=== PATIENT | male | born 1990 | race Asian ===

== ENCOUNTER 2016-12-28 15:51 | Emergency (ER) | payer OTHER ==
--- NOTE | 2016-12-28 16:04 | EDPHY ---
H & P Stated Complaint: rlq abd pain since yesterday Source: Patient Exam Limitations: No limitations - Personal History Current Tetanus/Diphtheria Vaccine: Yes - Medical/Surgical History Hx Asthma: No Hx Chronic Respiratory Disease: No Hx Diabetes: No Hx Cardiac Disease: No Hx Renal Disease: No Hx Cirrhosis: No Hx Alcoholism: No Hx HIV/AIDS: No Hx Splenectomy or Spleen Trauma: No Other PMH: denies - Social History Smoking Status: Never smoked Time Seen by Provider: 12/28/16 16:01 HPI/ROS: CHIEF COMPLAINT: Abdominal pain HISTORY OF PRESENT ILLNESS: 26-year-old male presents emergency department complaining of right lower quadrant abdominal pain that started last night. Patient reports the pain is a pressure, started a 8:00 p.m. last night, around 11:00 p.m. it became more sharp lasting an hour then became more dull. He was able to sleep last night, woke up today in has had dull right lower quadrant tenderness 4/10 all day. Normal appetite, no nausea, vomiting or diarrhea, no urinary urgency, frequency or dysuria. Patient reports 3 days ago he had a few episodes of loose stools that he attributed to drinking alcohol over the weekend which he does not usually do. He denies fevers. Patient reports he had unprotected sex on Tuesday and is requesting to be tested for gonorrhea and chlamydia. He denies penile discharge. No scrotal tenderness or swelling. REVIEW OF SYSTEMS: A comprehensive 10 point review of systems is otherwise negative aside from elements mentioned in the history of present illness. (Renate Gallegos) - Physical Exam Exam: Physical Exam Gen: Alert and Oriented, NAD HEENT: PERRL, moist mucous membranes NECK: no meningismus CV: regular rate and regular rhythm PULM: CTAB, no wheezes ABDOMEN: soft, right lower quadrant tenderness to palpation, no peritoneal signs , no rebound tenderness, negative Rovsing's : Patient declined BACK: No CVA tenderness NEURO: Neurologically grossly intact EXTREMITIES: normal appearing SKIN: no rash or break in skin on exposed skin PSYCH: answers questions appropriately. (Renate Gallegos) Constitutional: Initial Vital Signs Temperature (C) 36.4 C 12/28/16 15:58 Heart Rate 67 12/28/16 15:58 Respiratory Rate 17 12/28/16 15:58 Blood Pressure 121/69 H 12/28/16 15:58 O2 Sat (%) 97 12/28/16 15:58 O2 Delivery Mode Room Air Allergies/Adverse Reactions: No Known Allergies Allergy (Verified 12/28/16 15:58) Home Medications: Medication Instructions Recorded NK [No Known Home Meds] 12/28/16 Medical Decision Making - Diagnostics Imaging: Right lower quadrant ultrasound- Impression: Normal appendix. Findings discussed with Renate Gallegos NP 12/28/2016 at 17:20. Dictated By: Lloyd Quinn MD (Renate Gallegos) ED Course/Re-evaluation: 26-year-old nontoxic-appearing male presents abdominal pain. IV established, CBC, chemistry panel, urinalysis obtained along with chlamydia and gonorrhea ordered on his urine sample. Right lower quadrant ultrasound obtained to evaluate his appendix. CBC, chemistry panel and urinalysis are all unremarkable, right lower quadrant ultrasound shows a normal appendix. Repeat abdominal exam shows no peritoneal signs. I am not sure why the patient has this abdominal pain. He does report that it has improved as the day has gone on today. He has been given return precautions for pain that he continues in 12 hours. He has been given a primary care doctor to establish care with. He is return sooner for any worsening symptoms. Patient is comfortable with this plan. (Renate Gallegos) Differential Diagnosis: The differential diagnosis for the patient's abdominal pain included but was not limited to appendicitis, cholecystitis, hernias, testicular torsion, gastritis, and urinary tract infection. (Renate Gallegos) Other Provider: PHYSICIAN DOCUMENTATION: The patient was evaluated and managed by the nurse practitioner and myself. I have reviewed the chart and agree with the findings and plan of care as documented. In addition, I examined the patient myself at 1742. History confirmed as with some a right-sided abdominal pain. Physical findings as follows: Looks well, no McBurney's point tenderness, no rebound or guarding. Ultrasound report reviewed. At this time I do not think CT scanning is indicated; appendicitis precautions given including return if not better in 12 hours, worsening pain, fever or vomiting.. I am the secondary supervising physician. (Naun Haider) - Data Points Laboratory Results: Laboratory Results 12/28/16 17:30 12/28/16 17:30 12/28/16 12/28/16 12/28/16 17:40 17:30 17:30 WBC 6.46 10^3/uL 10^3/uL (3.80-9.50) RBC 4.85 10^6/uL 10^6/uL (4.40-6.38) Hgb 17.0 g/dL g/dL (13.7-17.5) POC Hgb 17.0 gm/dL gm/dL (14.5-17.3) Hct 47.4 % % (40.0-51.0) POC Hct 50 % % (42.8-50.6) MCV 97.7 fL fL (81.5-99.8) MCH 35.1 pg H pg (27.9-34.1) MCHC 35.9 g/dL g/dL (32.4-36.7) RDW 13.3 % % (11.5-15.2) Plt Count 289 10^3/uL 10^3/uL (150-400) MPV 9.4 fL fL (8.7-11.7) Neut % (Auto) 56.3 % % (39.3-74.2) Lymph % (Auto) 36.7 % % (15.0-45.0) [place] % (Auto) 5.7 % % (4.5-13.0) Eos % (Auto) 0.6 % % (0.6-7.6) Baso % (Auto) 0.5 % % (0.3-1.7) Nucleat RBC Rel Count 0.0 % % (0.0-0.2) Absolute Neuts (auto) 3.64 10^3/uL 10^3/uL (1.70-6.50) Absolute Lymphs (auto) 2.37 10^3/uL 10^3/uL (1.00-3.00) Absolute Monos (auto) 0.37 10^3/uL 10^3/uL (0.30-0.80) Absolute Eos (auto) 0.04 10^3/uL 10^3/uL (0.03-0.40) Absolute Basos (auto) 0.03 10^3/uL 10^3/uL (0.02-0.10) Absolute Nucleated RBC 0.00 10^3/uL 10^3/uL (0-0.01) Immature Gran % 0.2 % % (0.0-1.1) Immature Gran # 0.01 10^3/uL 10^3/uL (0.00-0.10) POC Sodium 142 mEq/L mEq/L (134-144) Sodium 141 mEq/L mEq/L (134-144) POC Potassium 3.9 mEq/L mEq/L (3.3-5.0) Potassium 4.0 mEq/L mEq/L (3.5-5.2) POC Chloride 101 mEq/L mEq/L (96-108) Chloride 102 mEq/L mEq/L (97-110) Carbon Dioxide 27 mEq/l mEq/l (22-31) Anion Gap 12 mEq/L mEq/L (8-16) POC BUN 12 mg/dL mg/dL (7-23) BUN 12 mg/dL mg/dL (7-23) Creatinine 0.8 mg/dL mg/dL (0.7-1.3) POC Creatinine 0.9 mg/dL mg/dL (0.8-1.5) Estimated GFR > 60 Glucose 80 mg/dL mg/dL (70-100) POC Glucose 80 mg/dL mg/dL (70-100) Calcium 9.9 mg/dL mg/dL (8.5-10.4) Urine Color Urine Appearance Urine pH Ur Specific [place] Urine Protein Urine Ketones Urine Blood Urine Nitrate Urine Bilirubin Urine Urobilinogen Ur Leukocyte Esterase Ur Culture Indicated? Urine Glucose C.trachomatis RNA (TMA) N.gonorrhoeae RNA (TMA) 12/28/16 12/28/16 16:00 16:00 WBC RBC Hgb POC Hgb Hct POC Hct MCV MCH MCHC RDW Plt Count MPV Neut % (Auto) Lymph % (Auto) [place] % (Auto) Eos % (Auto) Baso % (Auto) Nucleat RBC Rel Count Absolute Neuts (auto) Absolute Lymphs (auto) Absolute Monos (auto) Absolute Eos (auto) Absolute Basos (auto) Absolute Nucleated RBC Immature Gran % Immature Gran # POC Sodium Sodium POC Potassium Potassium POC Chloride Chloride Carbon Dioxide Anion Gap POC BUN BUN Creatinine POC Creatinine Estimated GFR Glucose POC Glucose Calcium Urine Color COLORLESS Urine Appearance CLEAR Urine pH 7.0 (5.0-7.5) Ur Specific [place] 1.002 (1.002-1.030) Urine Protein NEGATIVE (NEGATIVE) Urine Ketones NEGATIVE (NEGATIVE) Urine Blood NEGATIVE (NEGATIVE) Urine Nitrate NEGATIVE (NEGATIVE) Urine Bilirubin NEGATIVE (NEGATIVE) Urine Urobilinogen NEGATIVE EU EU (0.2-1.0) Ur Leukocyte Esterase NEGATIVE (NEGATIVE) Ur Culture Indicated? NOT INDICATED (NI) Urine Glucose NEGATIVE (NEGATIVE) C.trachomatis RNA (TMA) Pending N.gonorrhoeae RNA (TMA) Pending Point of Care Test Results: 12/28/16 17:40 POC Sodium 142 POC Potassium 3.9 POC Chloride 101 POC BUN 12 POC Creatinine 0.9 POC Glucose 80 Departure - Departure Disposition: Home, Routine, Self-Care Clinical Impression: Abdominal pain Qualifiers: Abdominal location: right lower quadrant Qualified Code(s): R10.31 - Right lower quadrant pain Condition: Good Instructions: Abdominal Pain (ED) Additional Instructions: Sometimes we are unable to diagnose an obvious cause of abdominal pain in the Emergency Department. Based upon our evaluation today, we see no obvious explanation for your pain. Because more serious conditions can be difficult to diagnose early in the course of their presentation, we ask that you return to the Emergency Department in 8-12 hours for a recheck if you are still having pain. This is necessary to exclude the development of a more serious condition or other intra-abdominal emergency. In the event your pain markedly increases before that time or you develop intractable vomiting or fever return to the Emergency Department immediately. Call [phone] for your chlamydia and gonorrhea results in 48 hours. You have been given the name of a primary care doctor to establish care with. Referrals: Michoacano Herrera DO [Medical Doctor] - As per Instructions (Primary care doctor on- call)
[2016-12-28 17:31] LABS: COLOR COLORLESS; LEUKOCYTE ESTERASE,URINE NEGATIVE (NEGATIVE); NITRITE,URINE NEGATIVE (NEGATIVE)
[2016-12-28 17:44] LABS: % IMMATURE GRANULYOCYTES 0.2 % (0.0-1.1); ABSOLUTE IMMATURE GRANULOCYTES 0.01 10^3/uL (0.00-0.10); ADD DIFF? NO; ADD MORPH? NO; ADD SCAN? NO; ATYPICAL LYMPHOCYTE FLAG 20 (0-99); FRAGMENT RBC FLAG 0 (0-99); HEMATOCRIT 47.4 % (40.0-51.0); LEFT SHIFT FLG 0 (0-99); LIPEMIA HEMOLYSIS FLAG 90 (0-99); MEAN CELL HEMOGLOBIN 35.1 pg (27.9-34.1); MEAN CELL HEMOGLOBIN CONCENTR. 35.9 g/dL (32.4-36.7); MEAN CELL VOLUME 97.7 fL (81.5-99.8); MEAN PLATELET VOLUME 9.4 fL (8.7-11.7); PLATELET CLUMPS FLAG 0 (0-99); PLATELET COUNT 289 10^3/uL (150-400); RED BLOOD CELL COUNT 4.85 10^6/uL (4.40-6.38); RED CELL DISTRIBUTION WIDTH 13.3 % (11.5-15.2)
[2016-12-28 18:04] LABS: ANION GAP 12 mEq/L (8-16); CARBON DIOXIDE 27 mEq/l (22-31); CHLORIDE 102 mEq/L (97-110); CREATININE 0.8 mg/dL (0.7-1.3); GLOMERULAR FILTRATION RATE > 60; GLUCOSE 80 mg/dL (70-100); SODIUM 141 mEq/L (134-144)
[2016-12-28 18:05] LABS: CALCIUM 9.9 mg/dL (8.5-10.4)
[2016-12-28 18:23] VITALS: BP 115/72; PULSE 70; RESP 20; TEMP 98.1; O2SAT 96
[2016-12-29 12:26] LABS: CHLAMYDIA AMPLIFICATION GENPRB NEGATIVE (NEGATIVE)
== END 2016-12-28 18:22 | disposition home or self-care (01) ==
DX: R10.31 Right lower quadrant pain (principal)
CPT/HCPCS: 82947-QW